=== PATIENT | male | born 1980 | race African-American/Black ===

== ENCOUNTER 2022-01-05 16:41 | Inpatient (IN) | payer BC ==
[~2022-01-05] VITALS: Ht 180.3 cm; Wt 183.6 kg
[2022-01-05 17:30] LABS: BASO % 0.3 % (0.0-2.0); EOS # 0.3 K/mm3 (0.0-0.7); EOS % 2.2 % (0.0-4.0); GRAN # 8.6 K/mm3 (1.4-6.5); GRAN % 74.8 % (42.2-75.2); HEMATOCRIT 41.4 % (42.0-52.0); HEMOGLOBIN 12.8 g/dl (13.5-18.0); LYMPH # 1.4 K/mm3 (1.2-3.4); LYMPH % 12.3 % (20.0-51.0); MEAN CELL VOLUME 72 fl (80.0-100.0); MEAN CORPUSCULAR HEMOGLOBIN 22 pg (27-31); MEAN CORPUSCULAR HGB CONC 31 g/dl (33.0-37.0); MONO # 1.1 K/mm3 (0.1-0.6); MONO % 9.5 % (1.7-9.3); PLATELET COUNT 144 K/mm3 (130-400); RED BLOOD COUNT 5.74 M/mm3 (4.20-5.60); REDCELL DISTRIBUTION WIDTH-CV 18.1 % (11.5-14.5)
[2022-01-05 17:48] LABS: ALBUMIN 3.1 gm/dL (3.5-5.0); BILIRUBIN,TOTAL 1.5 mg/dL (0.2-1.2); CALCIUM 9.1 mg/dL (8.4-10.2); CREATININE, serum 1.05 mg/dL (0.72-1.25); PARTIAL THROMBOPLASTIN TIME 32.7 SECONDS (26.0-37.0); TOTAL PROTEIN 6.9 gm/dL (6.2-8.1)
[2022-01-05 17:49] LABS: INR 1.4 (0.8-3.0); PROTHROMBIN TIME 16.1 SECONDS (9.7-12.8)
[2022-01-05 17:54] LABS: TROPONIN-I 0.017 ng/mL (0.00-0.033)
[2022-01-05 18:58] LABS: MAGNESIUM 1.8 mg/dL (1.6-2.6)
[2022-01-05 19:18] LABS: TSH w REFLEX 1.619 uIU/mL (0.350-4.940)
--- NOTE | 2022-01-05 19:45 | NUR ---
pt admitted for afib RVR, HTN, SOB and fatigue. IV in right hand with cardizem infusing @ 5cc/hr, IV in left hand with heparin infusing @ 23cc/hr, pt on RA, feels SOB with ambulation, O2 sat on RA mid 90s. ambulates to restroom without assistance required, HR up to 150s when out of bed, urinal given to allow for bedrest, Dr Barron here to see pt. pt had food delivered for dinner. CEZAR Matthew working on orders.
[2022-01-05 19:51] VITALS: BP 163/129; PULSE 93; TEMP 98.2
[2022-01-05 21:35] VITALS: BP 131/113; PULSE 99
[2022-01-05 23:20] VITALS: BP 193/103; PULSE 113; TEMP 98
[2022-01-05] MEDS ORDERED: HCTZ 25MG TAB25 MG PO (23:23)
[2022-01-05] MEDS ORDERED: PRINIVIL40 MG PO (23:23)
[2022-01-05] MEDS ORDERED: NORVASC 10MG10 MG PO (23:23)
--- NOTE | 2022-01-05 23:45 | NUR ---
cardizem gtt increased to 10cc/hr per order for elevated BP and HR
[2022-01-06] VITALS (16 sets, daily range): BP systolic 129–189; BP diastolic 93–130; PULSE 60–112; TEMP 97.7–98.5
--- NOTE | 2022-01-06 01:10 | NUR ---
hepXa 0.29, rate increased to 24 ml/hr per protocol
--- NOTE | 2022-01-06 03:44 | NUR ---
10 mg hydralazine given IVP for DBP >110, currently 163/130, cardizem gtt @ 10 cc/hr
[2022-01-06 07:52] LABS: BASO % 0.2 % (0.0-2.0); EOS # 0.3 K/mm3 (0.0-0.7); EOS % 2.5 % (0.0-4.0); GRAN # 9.2 K/mm3 (1.4-6.5); HEMATOCRIT 44.2 % (42.0-52.0); HEMOGLOBIN 13.5 g/dl (13.5-18.0); LYMPH # 1.7 K/mm3 (1.2-3.4); LYMPH % 13.8 % (20.0-51.0); MEAN CELL VOLUME 72 fl (80.0-100.0); MEAN CORPUSCULAR HEMOGLOBIN 22 pg (27-31); MEAN CORPUSCULAR HGB CONC 31 g/dl (33.0-37.0); MONO # 1.1 K/mm3 (0.1-0.6); MONO % 8.4 % (1.7-9.3); PLATELET COUNT 152 K/mm3 (130-400); RED BLOOD COUNT 6.14 M/mm3 (4.20-5.60); REDCELL DISTRIBUTION WIDTH-CV 18.7 % (11.5-14.5)
[2022-01-06 08:14] LABS: CALCIUM 9.2 mg/dL (8.4-10.2); CREATININE, serum 1.01 mg/dL (0.72-1.25); MAGNESIUM 2.2 mg/dL (1.6-2.6); POTASSIUM 3.5 mmol/L (3.5-4.5)
--- NOTE | 2022-01-06 08:52 | NUR ---
ELEVATED BP READINGS AND DIZZINESS REPORTED TO HOSPITALIST. ORDERS RECIEVED.
--- NOTE | 2022-01-06 09:00 | NUR ---
HIGH HEART RATE REPORTED TO HOSPITALIST AND CARDIO. ECHO COMPLETED. STILL CONT TO HAVE ELEVATED BP READINGS. DENIES CHEST PAIN AT THIS TIME. CONT TO HAVE DYSPNEA EVEN AT REST. PICC LINE BEING PLACED AND AMIODARONE DRIP ORDERED TO CONTROL HEART RATE. WILL CONT TO MONITOR PATIENT AND SYMPTOMS. PATIENT INSTRUCTED TO REPORT CHEST PAIN IMMEDIATELY. RATE RUNNING 130S-170S.
--- NOTE | 2022-01-06 09:14 | NUR ---
Initial visit attempt; Patient sitting on the edge of his bed weaving back and forth. He is a very large man and difficult to help. Wheel Assembler informed his nurse who spoke with him again about not trying to stand on his own.
--- NOTE | 2022-01-06 09:25 | NUR ---
Fence Installer met with patient to discuss discharge planning. Patient lives alone in [place] and sees Viky Banks, Nurse Practitioner at [facility] for primary care. Patient reports that he is employed and is independent with ADLS. Patient obtains medications from [facility] and does not use any DME. Patient does not have Advance Directives and is not interested in designating DPOA-HC at this time. Patient is not and has three children. Patient states they are 18, 13, and 10 and live with their mother, Diane (ph#[phone]). Patient's 18 year old child's name is Elenita Ching. Patient plans to return home at time of discharge. Discharge Plan: Home
--- NOTE | 2022-01-06 13:46 | NUR ---
CRITICAL HEP XA REPORTED TO THIS NURSE FROM LAB OF [facility]OVE 2. REQUEST REDRAW TO ENSURE ACCURACY STAT. HEP DRIP STOPPED UNTIL THIS IS DONE.
[2022-01-07] VITALS (20 sets, daily range): BP systolic 139–181; BP diastolic 59–132; PULSE 65–114; TEMP 97.2–99.3
--- NOTE | 2022-01-07 08:00 | NUR ---
PT ASLEEP SITTING UP, PAUSES IN PT BREATHING. PT FALLING ASLEEP WHILE TALKING TO HIM, NENA ZARATE ORDERED TO STOP CARDIZEM UNTIL ISAÍAS/CARDIOVERSION TO "SEE HOW HE DOES". MEDS PAUSED FOR HEPXA DRAW, THEN RESTARTED AFTER LAB DRAW, PT AOX4, BOWEL SOUNDS HYPOACTIVE, REPORTS DIARRHEA 2 NIGHTS AGO, NONE SINCE THEN. ASSESSMENT PERFORMED, MEDICATIONS GIVEN PER EMAR, PT DENIES PAIN, CALL LIGHT WITHIN REACH, NO OTHER NEEDS
--- NOTE | 2022-01-07 12:54 | NUR ---
PT RETURNED TO ROOM, VITALS CART ATTACHED, PT REPORTS FEELING MUCH BETTER AND SIGNIFICANTLY LESS ANXIOUS, LUNCH ORDERED PER PT REQUEST, WILL CONTINUE TO MONITOR
--- NOTE | 2022-01-07 17:19 | NUR ---
PT PLEASANT, AOX4, DENIES PAIN, APPEARS LESS ANXIOUS THAN IN AM BEFORE PROCEDURE, EAGER FOR DISCHARGE, MEDICATIONS GIVEN PER EMAR, CALL LIGHT WITHIN REACH, PT INDEPENDENT IN ROOM, NO OTHER NEEDS AT THIS TIME
--- NOTE | 2022-01-07 20:00 | NUR ---
PT SITTING ON SIDE OF BED. NO COMPLAINTS VOICED. SEE MAR FOR APRESOLINE GIVEN FOR BP 181/95. TELE SHOWS SR. CALL LIGHT IN REACH.
[2022-01-08 00:24] VITALS: BP 147/89; PULSE 83; TEMP 98.5
--- NOTE | 2022-01-08 03:52 | NUR ---
PT C/O H/A. NOTIFIED BRIGID LENNON APRN FOR TYLENOL. SEE NEW ORDER.
--- NOTE | 2022-01-08 04:10 | NUR ---
PT ASLEEP BUT VERY RESTLESS. SLEEP APNEA NOTED.
[2022-01-08 04:11] VITALS: BP 153/96; PULSE 88; TEMP 98.3
[2022-01-08 07:52] LABS: BASO % 0.3 % (0.0-2.0); EOS # 0.3 K/mm3 (0.0-0.7); EOS % 2.8 % (0.0-4.0); GRAN # 8.9 K/mm3 (1.4-6.5); GRAN % 79.1 % (42.2-75.2); HEMATOCRIT 43.4 % (42.0-52.0); HEMOGLOBIN 12.9 g/dl (13.5-18.0); LYMPH % 8.5 % (20.0-51.0); MEAN CELL VOLUME 75 fl (80.0-100.0); MEAN CORPUSCULAR HEMOGLOBIN 22 pg (27-31); MEAN CORPUSCULAR HGB CONC 30 g/dl (33.0-37.0); MONO % 8.5 % (1.7-9.3); PLATELET COUNT 158 K/mm3 (130-400); RED BLOOD COUNT 5.82 M/mm3 (4.20-5.60); REDCELL DISTRIBUTION WIDTH-CV 18.5 % (11.5-14.5)
[2022-01-08 07:53] VITALS: BP 152/99; PULSE 88; TEMP 97.9
[2022-01-08 07:57] LABS: CALCIUM 9.2 mg/dL (8.4-10.2); CREATININE, serum 0.9 mg/dL (0.72-1.25); POTASSIUM 3.7 mmol/L (3.5-4.5)
[2022-01-08] MEDS ORDERED: ELIQUIS 5MG PO (08:27)
[2022-01-08] MEDS ORDERED: CORDARONE200 MG/TAB PO (08:28)
[2022-01-08] MEDS ORDERED: CARDIZEM CD 18180 MG PO (08:28)
--- NOTE | 2022-01-08 11:12 | NUR ---
Patient being discharged home. All discharge instructions/education discussed w/ patient. Patient verbalized understanding and signed appropriate discharge paperwork. AIVS removed PICC at 1110, patient to lie flat until 1140.
[2022-01-08 11:49] VITALS: BP 168/98; PULSE 89; TEMP 98.1
== END 2022-01-08 12:00 | disposition home or self-care (01) | DRG 291 ==
LOC: COL.ER 16:41 → MEDICAL 18:34
PROVIDERS: Nurse Practitioner; Physician Assistant; Student in an Organized Health Care Education/Training Program; ADMIT Internal Medicine
PROC: 02HV33Z Insertion of Infusion Device into Superior Vena Cava, Percutaneous Approach (ICD-10-PCS; principal; 2022-01-06)
PROC: 5A2204Z Restoration of Cardiac Rhythm, Single (ICD-10-PCS; 2022-01-07)
DX: I11.0 Hypertensive heart disease with heart failure (principal); I50.31 Acute diastolic (congestive) heart failure; I48.20 Chronic atrial fibrillation, unspecified; Z68.43 Body mass index [BMI] 50.0-59.9, adult; J45.909 Unspecified asthma, uncomplicated; E78.5 Hyperlipidemia, unspecified; F32.A Depression, unspecified; G47.33 Obstructive sleep apnea (adult) (pediatric); I08.0 Rheumatic disorders of both mitral and aortic valves; F41.9 Anxiety disorder, unspecified; E66.01 Morbid (severe) obesity due to excess calories; Z87.01 Personal history of pneumonia (recurrent); Z23 Encounter for immunization
CPT/HCPCS: 99223-AI; 99233-AI; 99239; C1751; C1892; J0282; J0360; J1644; J1940; J2704; J3475; J7060

== ENCOUNTER 2024-03-16 15:13 | Emergency (ER) | payer OTHER ==
[~2024-03-16] VITALS: Ht 180.3 cm; Wt 181.8 kg
[~2024-03-16 15:13] MED LIST: APRESOLINE 10MG10 MG PO; CARDIZEM CD 18180 MG PO; CORDARONE200 MG/TAB PO; DOXYCYCLINE 10100 MG PO; ELIQUIS 5MG PO; GLUCOPHAGE500 MG/TAB PO; HCTZ 25MG TAB25 MG PO; NORVASC 10MG10 MG PO; PRINIVIL40 MG PO; ROXICODONE 55 MG/TAB PO
[2024-03-16 15:20] VITALS: TEMP 98
[2024-03-16 15:51] LABS: BASO % 0.2 % (0.0-2.0); EOS # 0.2 K/mm3 (0.0-0.7); EOS % 1.7 % (0.0-4.0); GRAN % 68.6 % (42.2-75.2); HEMATOCRIT 44.7 % (42.0-52.0); HEMOGLOBIN 13.3 g/dl (13.5-18.0); LYMPH # 1.7 K/mm3 (1.2-3.4); MEAN CELL VOLUME 74 fl (80.0-100.0); MEAN CORPUSCULAR HEMOGLOBIN 22 pg (27-31); MEAN CORPUSCULAR HGB CONC 30 g/dl (33.0-37.0); MONO # 0.9 K/mm3 (0.1-0.6); PLATELET COUNT 171 K/mm3 (130-400); REDCELL DISTRIBUTION WIDTH-CV 17.4 % (11.5-14.5)
[2024-03-16 15:59] LABS: MEAN PLATELET VOLUME 9.1 fl (7.4-10.4)
[2024-03-16] MEDS ORDERED: hydrALAZINE 20 MG/ML 1 ML VIAL IV ONE ×2 (16:00→16:45)
[2024-03-16 16:01] LABS: RED BLOOD COUNT 6.08 M/mm3 (4.20-5.60)
[2024-03-16 16:15] LABS: ALBUMIN 3.5 g/dL (3.5-5.0); BILIRUBIN,TOTAL 0.5 mg/dL (0.2-1.2); CALCIUM 9.6 mg/dL (8.4-10.2); CREATININE, serum 1.09 mg/dL (0.72-1.25); POTASSIUM 3.8 mEq/L (3.5-4.5); TOTAL PROTEIN 7.6 g/dl (6.2-8.1)
[2024-03-16 16:19] LABS: TROPONIN-I 0.046 ng/mL (0.00-0.033)
[2024-03-16] MEDS ORDERED: Furosemide 40 MG/4 ML VIAL IV ONE (17:30)
[2024-03-16] MEDS ORDERED: Lisinopril 20 MG TAB PO ONE (17:30)
[2024-03-16 18:30] VITALS: BP 198/92; PULSE 83
[2024-03-16] MEDS ORDERED: Furosemide 40 MG TAB PO ONE (18:30)
== END 2024-03-16 18:30 | disposition home or self-care (01) ==
LOC: COL.ER 15:13
PROVIDERS: Nurse Practitioner
DX: R53.83 Other fatigue (principal); R06.00 Dyspnea, unspecified; I48.91 Unspecified atrial fibrillation; I10 Essential (primary) hypertension; Z79.899 Other long term (current) drug therapy; Z79.01 Long term (current) use of anticoagulants
CPT/HCPCS: J0360; J1940

== ENCOUNTER 2024-05-25 12:48 | Emergency (ER) | payer OTHER ==
[~2024-05-25] VITALS: Ht 182.9 cm; Wt 156.8 kg
[2024-05-25 12:55] VITALS: TEMP 98.6
[2024-05-25 13:39] LABS: BASO % 0.1 % (0.0-2.0); EOS # 0.1 K/mm3 (0.0-0.7); EOS % 0.5 % (0.0-4.0); GRAN # 11.4 K/mm3 (1.4-6.5); GRAN % 81.2 % (42.2-75.2); LYMPH # 1.4 K/mm3 (1.2-3.4); LYMPH % 10.2 % (20.0-51.0); MEAN CELL VOLUME 72 fl (80.0-100.0); MEAN CORPUSCULAR HGB CONC 30 g/dl (33.0-37.0); MONO % 7.2 % (1.7-9.3); PLATELET COUNT 227 K/mm3 (130-400); RED BLOOD COUNT 4.03 M/mm3 (4.20-5.60); REDCELL DISTRIBUTION WIDTH-CV 19.3 % (11.5-14.5)
[2024-05-25 13:40] LABS: HEMOGLOBIN 8.8 g/dl (13.5-18.0); MEAN CORPUSCULAR HEMOGLOBIN 22 pg (27-31)
[2024-05-25 13:57] LABS: ALBUMIN 2.7 g/dL (3.5-5.0); BILIRUBIN,TOTAL 0.8 mg/dL (0.2-1.2); CALCIUM 9.1 mg/dL (8.4-10.2); CREATININE, serum 1.25 mg/dL (0.72-1.25); POTASSIUM 4.4 mEq/L (3.5-4.5); TOTAL PROTEIN 7.1 g/dl (6.2-8.1)
[2024-05-25 14:24] LABS: TROPONIN-I 0.126 ng/mL (0.00-0.033)
[2024-05-25] MEDS ORDERED: NS 100 ML IV SCH (14:57)
[2024-05-25] MEDS ORDERED: Iohexol 300 - 100 ML VIAL IV ONE (14:57)
[2024-05-25] MEDS ORDERED: K-TAB20 PO (15:20)
[2024-05-25] MEDS ORDERED: LASIX 40MG TABL40 MG PO (15:23)
[2024-05-25] MEDS ORDERED: Atorvastatin 80 MG TAB PO ONE (16:30)
[2024-05-25 16:45] LABS: COLLECTION METHOD CLEAN CATCH
[2024-05-25 16:54] LABS: URINE APPEARANCE CLEAR (CLEAR/HAZY); URINE BLOOD 2+ (NEGATIVE); URINE COLOR Dark Yellow (YELLOW); URINE GLUCOSE NEGATIVE (NEGATIVE); URINE KETONE NEGATIVE (NEGATIVE); URINE NITRATE NEGATIVE (NEGATIVE); URINE PROTEIN(semi-quant) 1+ (NEGATIVE)
[2024-05-25 20:04] VITALS: BP 134/74; PULSE 92
== END 2024-05-25 20:17 | disposition short-term general hospital (02) ==
LOC: COL.ER 12:48
PROVIDERS: Physician Assistant
DX: I21.4 Non-ST elevation (NSTEMI) myocardial infarction (principal); I48.91 Unspecified atrial fibrillation; D72.829 Elevated white blood cell count, unspecified; E66.01 Morbid (severe) obesity due to excess calories; Z79.01 Long term (current) use of anticoagulants; Z68.42 Body mass index [BMI] 45.0-49.9, adult
CPT/HCPCS: Q9967